=== PATIENT | male | born 1990 | race African-American/Black ===

== ENCOUNTER 2021-04-09 12:03 | Emergency (ER) | payer MEDICAID ==
[~2021-04-09] VITALS: Ht 188 cm; Wt 61.4 kg
[2021-04-09 19:05] VITALS: BP 158/102
== END 2021-04-09 19:14 | disposition home or self-care (01) ==
LOC: EMS 12:03
DX: T74.21XA Adult sexual abuse, confirmed, initial encounter (principal)
CPT/HCPCS: 99283; Z7502